=== PATIENT | male | born 1995 | race African-American/Black ===

== ENCOUNTER 2018-06-28 21:14 | Emergency (ER) | payer SELFPAY ==
[~2018-06-28] VITALS: Ht 167.6 cm; Wt 84.1 kg
[2018-06-28 21:19] VITALS: BP 148/72
[2018-06-28] MEDS ORDERED: KETOROLAC 30 MG/1 ML IM ONE (21:30)
[2018-06-28] MEDS ORDERED: METHOCARBAMOL 750 MG TABLET PO ONE (21:30)
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
[2018-06-28] MEDS ORDERED: METHOCARBAMOL 750 MG TABLET ONE (21:33)
[2018-06-28] MEDS ORDERED: KETOROLAC 30 MG/1 ML ONE (21:33)
--- NOTE | 2018-06-28 21:41 | NUR ---
PT MEDICATED PER EMAR. PT TOLERATED WELL.
--- NOTE | 2018-06-28 22:03 | NUR ---
PT BACK TO ROOM FROM XRAY.
--- NOTE | 2018-06-28 22:27 | NUR ---
PT GIVEN DC INSTRUCTIONS AND SCRIPTS. PT EDUCATED REGARDING DC MEDICATIONS. PT AMB TO DC WITH STEADY GAIT. NO ACUTE DISTRESS AT DC.
== END 2018-06-28 22:28 | disposition home or self-care (01) ==
LOC: ED 22:22
DX: S33.5XXA Sprain of ligaments of lumbar spine, initial encounter (principal); S16.1XXA Strain of muscle, fascia and tendon at neck level, initial encounter; V49.49XA Driver injured in collision with other motor vehicles in traffic accident, initial encounter; Y93.89 Activity, other specified; Y92.410 Unspecified street and highway as the place of occurrence of the external cause; Y99.8 Other external cause status
CPT/HCPCS: 72050; 72110; 96372; 99283; J1885